=== PATIENT | male | born 1945 | race Caucasian/White ===

== ENCOUNTER 2022-04-05 12:03 | Emergency (ER) | payer OTHER, MEDICARE ==
[2022-04-05] VITALS (9 sets, daily range): BP systolic 139–178; BP diastolic 77–113
[~2022-04-05] VITALS: Ht 177.8 cm; Wt 71.0 kg
[2022-04-05 12:40] LABS: BASO% 0.8 % (0-3); EOS% 0.8 % (0-8); HEMATOCRIT 34.2 % (39.0-50.0); HEMOGLOBIN 11.3 g/dl (14.0-18.0); IMMATURE GRANULOCYTES 0.2 % (0.0-5.0); LYMPH% 17.5 % (15-41); MEAN CELL VOLUME 88.4 fL CALC (80.0-100.0); MEAN CORPUSCULAR HGB 29.2 pG CALC (26.0-32.0); NEUT# 4.82 thou/uL (1.82-7.42); NEUT% 72.7 % (42-76); RED BLOOD COUNT 3.87 mill/uL (4.70-6.10)
[2022-04-05] MEDS ORDERED: ULCER MED (12:53)
[2022-04-05 13:04] LABS: PROTHROMBIN TIME 10.1 SECONDS (9.0-12.5)
[2022-04-05 13:08] LABS: ALBUMIN 4.1 g/dL (3.2-5.0); ALKALINE PHOSPHATASE 81 u/l (38-126); ANION GAP 8 (6-22 (CALC)); BILIRUBIN, TOTAL 0.5 mg/dL (0.0-1.4); BUN 20 mg/dL (8-23); BUN/CREATININE RATIO 15 (12-20 (CALC)); CARBON DIOXIDE 31 mmol/l (22-30); CHLORIDE 99 mmol/l (95-108); CREATININE 1.3 mg/dL (0.7-1.3); ETHYL ALCOHOL 0 mg/dl (0-30); GFR FOR AFR.AMER. > 60 ML/MIN (>=60 (CALC)); GFR OTHER RACES 54 ML/MIN (>=60 (CALC)); POTASSIUM 3.8 mmol/l (3.5-5.1); SGOT/AST 22 u/l (19-48); SODIUM 134 mmol/l (137-146); TOTAL PROTEIN 6.6 g/dL (6.3-8.2)
[2022-04-05] MEDS ORDERED: TRAMADOL HYDROC50 M1 PO ×2 (15:37→15:43)
[2022-04-05] MEDS ORDERED: ATORVASTATIN CA40 MG PO ×2 (15:39→15:43)
[2022-04-05 15:57] LABS: URINE BILIRUBIN - DIPSTICK NEGATIVE (NEGATIVE); URINE BLOOD DIPSTICK NEGATIVE (NEGATIVE); URINE COLOR YELLOW; URINE GLUCOSE - DIPSTICK NEGATIVE (NEGATIVE); URINE KETONE TRACE mg/dL (NEGATIVE); URINE LEUK ESTERASE NEGATIVE (NEGATIVE); URINE PH 7.5 (4.5-8.0); URINE PROTEIN - DIPSTICK NEGATIVE (NEG-TRACE); URINE UROBILINOGEN - DIPSTICK 0.2 E.U./dL (0.2)
[2022-04-05 15:58] LABS: URINE NITRITE - DIPSTICK NEGATIVE (Negative)
== END 2022-04-05 15:58 | disposition left against medical advice (07) | DRG 563 ==
LOC: ED 12:03
PROVIDERS: Nurse Practitioner
DX: S52.502A Unspecified fracture of the lower end of left radius, initial encounter for closed fracture (principal); G45.9 Transient cerebral ischemic attack, unspecified; S52.602A Unspecified fracture of lower end of left ulna, initial encounter for closed fracture; V84.5XXA Driver of special agricultural vehicle injured in nontraffic accident, initial encounter; Y92.79 Other farm location as the place of occurrence of the external cause; R94.31 Abnormal electrocardiogram [ECG] [EKG]; Z53.29 Procedure and treatment not carried out because of patient's decision for other reasons
CPT/HCPCS: Q9967